=== PATIENT | female | born 1980 | race Caucasian/White ===

== ENCOUNTER 2019-12-23 14:50 | Emergency (ER) | payer OTHER ==
[~2019-12-23] VITALS: Ht 154.9 cm; Wt 52.2 kg
[2019-12-23] MEDS ORDERED: VOLTAREN100 GM TOP (14:58)
[2019-12-23] MEDS ORDERED: FLEXERIL PO (16:30)
[2019-12-23] MEDS ORDERED: TRAMADOL 50 MG50 MG PO (16:30)
[2019-12-23 16:41] VITALS: BP 124/77
== END 2019-12-23 16:42 | disposition home or self-care (01) ==
LOC: M.ERS 14:50
DX: S00.83XA Contusion of other part of head, initial encounter (principal); M54.2 Cervicalgia; W00.0XXA Fall on same level due to ice and snow, initial encounter; Y92.89 Other specified places as the place of occurrence of the external cause; Y93.89 Activity, other specified; Y99.8 Other external cause status